=== PATIENT | male | born 1990 | race Caucasian/White ===

== ENCOUNTER 2019-10-16 17:26 | Emergency (ER) | payer OTHER ==
[2019-10-16] MEDS ORDERED: Diphtheria,Pertussis(Acell),Tetanus Vaccine 0.5 ML SDV IM ONE (17:56)
[2019-10-16] MEDS ORDERED: Bacitracin Oint 1 GM U/D Packet TOP ONE (17:56)
--- NOTE | 2019-10-16 18:23 | EDM.PDOC ---
ED HPI GENERAL MEDICAL PROBLEM - General Chief Complaint: Laceration Stated Complaint: LEFT HAND LACERATION Time Seen by Provider: 10/16/19 18:00 Source of Information: Reports: Patient History Limitations: Reports: No Limitations - History of Present Illness INITIAL COMMENTS - FREE TEXT/NARRATIVE: 29-year-old male with a laceration to his left hand. He has an irregular flap l aceration in the web between thumb and index finger on the left hand dorsally. No other injury, he is otherwise healthy. Onset: Sudden Duration: Hour(s): (1 hour ago) Location: Reports: Upper Extremity, Left Associated Symptoms: Reports: No Other Symptoms - Related Data Allergies Allergy/AdvReac Type Severity Reaction Status Date / Time No Known Allergies Allergy Verified 10/16/19 17:47 Home Meds: Home Meds NK [No Known Home Meds] 10/16/19 [History] Past Medical History - Past Health History Medical/Surgical History: Denies Medical/Surgical History Social & Family History - Tobacco Use Smoking Status *Q: Never Smoker ED ROS GENERAL - Review of Systems Review Of Systems: See Below Constitutional: Denies: Fever Respiratory: Denies: Shortness of Breath Cardiovascular: Denies: Chest Pain GI/Abdominal: Denies: Nausea, Vomiting Neurological: Denies: Paresthesia Psychiatric: Reports: No Symptoms ED EXAM, SKIN/RASH Exam: See Below Exam Limited By: No Limitations General Appearance: Alert, No Apparent Distress Head: Atraumatic Respiratory/Chest: No Respiratory Distress Extremities: Other (Patient is a 3 cm irregular flap laceration on the dorsal aspect of the left hand in the webspace between the thumb and index finger. It is into the subcutaneous tissue but no major structures are involved. Distal CMS is normal.) Neurological: Alert, Oriented Psychiatric: Normal Affect, Normal Mood Course - Vital Signs Last Recorded V/S: Last Vital Signs Temp 96.9 F 10/16/19 17:51 Pulse 54 L 10/16/19 17:51 Resp 16 10/16/19 17:51 BP 142/73 H 10/16/19 17:51 Pulse Ox 100 10/16/19 17:51 - Orders/Labs/Meds Meds: Medications Discontinued Medications Generic Name Dose Route Start Last Admin Trade Name Freq PRN Reason Stop Dose Admin Bacitracin 1 dose 10/16/19 17:56 08/23/20 18:34 Bacitracin Oint 1 Gm TOP 10/16/19 17:57 1 dose ONETIME ONE Administration Diphtheria/Tetanus/Acell Pertussis 0.5 ml 10/16/19 17:56 10/16/19 18:33 Adacel IM 10/16/19 17:57 0.5 ml .ONCE ONE Administration - Re-Assessments/Exams Free Text/Narrative Re-Assessment/Exam: 10/16/19 18:22 The area was anesthetized with 1% lidocaine with epinephrine, washed thoroughly with saline, and five 5-0 Ethilon sutures were used to close the laceration. It was covered with bacitracin and a bandage, he was given a Tdap booster. He is to keep this clean and dry while healing and the sutures can be removed in 8 days. Departure - Departure Time of Disposition: 18:35 Disposition: Home, Self-Care 01 Clinical Impression: Laceration of left hand Qualifiers: Encounter type: initial encounter Foreign body presence: without foreign body Qualified Code(s): S61.412A - Laceration without foreign body of left hand, initial encounter - Discharge Information Instructions: Laceration Care, Adult Referrals: PCP,None [Primary Care Provider] - Forms: ED Department Discharge Care Plan Goals: Keep wound covered and clean while healing. Increase activity as tolerated and sutures can be removed in 8 days. Recheck sooner if concerns of infection or not healing satisfactorily. Keep fishing. Sepsis Event Note (ED) - Evaluation Sepsis Screening Result: No Definite Risk - Focused Exam Vital Signs: Vital Signs Temp Pulse Resp BP Pulse Ox 10/16/19 17:51 96.9 F 54 L 16 142/73 H 100 10/16/19 17:40 96.9 F 54 L 16 142/73 H 100
== END 2019-10-16 18:35 | disposition home or self-care (01) ==
LOC: JP.ED 17:26
DX: S61.412A Laceration without foreign body of left hand, initial encounter (principal); Z23 Encounter for immunization; X58.XXXA Exposure to other specified factors, initial encounter
CPT/HCPCS: 12002; 90471; 90715; 99282

== ENCOUNTER 2021-08-20 23:24 | Emergency (ER) | payer OTHER ==
[2021-08-21] MEDS ORDERED: Famotidine 20 MG Tab PO ONE (00:12)
[2021-08-21] MEDS ORDERED: predniSONE 20 MG Tab PO ONE (00:13)
== END 2021-08-21 00:31 | disposition home or self-care (01) ==
LOC: JP.ED 23:24
DX: T63.441A Toxic effect of venom of bees, accidental (unintentional), initial encounter (principal); Z86.16 Personal history of COVID-19
CPT/HCPCS: 99281; 99282; A9270; J7512